=== PATIENT | male | born 1990 | race Asian ===

== ENCOUNTER 2025-03-15 | Emergency (ER) | payer BC ==
[~2025-03-15] VITALS: Ht 167.6 cm; Wt 100.0 kg
[2025-03-15 00:39] VITALS: O2SAT 97
[2025-03-15 01:34] LABS: BASOPHILS % 0.7 % (0.0-2.0); CREATININE 0.8 mg/dL (0.6-1.3); EOSINOPHILS % 2.1 % (0.0-5.0); HEMATOCRIT. 45.6 % (42.0-52.0); HEMOGLOBIN. 15.4 g/dL (14.0-18.0); LYMPHOCYTES % 17.9 % (20.0-50.0); MEAN PLATELET VOLUME 7.7 fl (7.4-10.4); MONOCYTES % 11.8 % (2.0-8.0); NEUTROPHILS % 67.5 % (40.0-76.0); PLATELET 348 x1000/uL (130-400); RED BLOOD CELL COUNT 5.14 mill/uL (4.7-6.1); RED CELL DISTRIBUTION WIDTH 12.8 % (11.6-14.6); UREA NITROGEN BLOOD 10 mg/dL (9-23)
[2025-03-15 01:36] LABS: TROPONIN I HIGH SENSITIVITY 7 ng/L (3.0-53)
[2025-03-15 01:49] LABS: CLARITY URINE CLEAR (CLEAR); COLOR URINE YELLOW (YELLOW); GLUCOSE URINE NEGATIVE (NEGATIVE); KETONES URINE NEGATIVE (NEGATIVE); LEUKOCYTE ESTERASE URINE NEGATIVE (NEGATIVE); NITRITE URINE NEGATIVE (NEGATIVE); OCCULT BLOOD URINE NEGATIVE (NEGATIVE); PH URINE 6.0 (4.5-8.0); PROTEIN URINE NEGATIVE (NEGATIVE); SPECIFIC GRAVITY URINE 1.003 (1.005-1.030); UROBILINOGEN URINE 0.2 E.U./dL (0.2-1.0)
[2025-03-15 03:00] VITALS: BP 122/86; PULSE 85; RESP 20; TEMP 36.9; O2SAT 98
[2025-03-15 03:28] LABS: T4 FREE 2.05 ng/dL (0.89-1.76)
[2025-03-15 04:48] LABS: CREATININE 0.9 mg/dL (0.6-1.3); UREA NITROGEN BLOOD 10 mg/dL (9-23)
[2025-03-15 04:50] LABS: TROPONIN I HIGH SENSITIVITY 8 ng/L (3.0-53)
== END 2025-03-15 05:33 | disposition home or self-care (01) ==
LOC: ER
DX: R00.2 Palpitations (principal); I10 Essential (primary) hypertension; F41.9 Anxiety disorder, unspecified
CPT/HCPCS: 36415; 71045; 80048; 81003; 84439; 84443; 84484; 85025; 93005; 99285